=== PATIENT | female | born 1965 | race Caucasian/White ===

== ENCOUNTER 2017-11-30 09:27 | Observation (INO) ==
--- NOTE | 2017-11-30 09:54 | Emergency Department Note ---
Disposition Clinical Impression: Syncope Qualifiers: Syncope type: unspecified Qualified Code(s): R55 - Syncope and collapse Chest pain Qualifiers: Chest pain type: unspecified Qualified Code(s): R07.9 - Chest pain, unspecified Disposition: Admitted As Inpatient Condition: Good Referrals: Mame Lopez, BRIDGET [Primary Care Provider] - Time of Disposition: 11:20 Syncope HPI - General Chief Complaint: ED Neuro Symptoms/Deficit Stated Complaint: Syncopal,Neuro symptoms, CP Time Seen by Provider: 11/30/17 09:30 Source: patient Limitations: no limitations Nursing Notes Reviewed: Yes Vital Signs Reviewed: Yes - History of Present Illness HPI Narrative: 52 y/o female with hx of prior MA with stent placed in 2011 presents to the ED with complaints of syncope x2 and CP. Pt states that for the last few days she felt clammy and sweaty. 2 days ago she had a terrible headache and afterward was clammy, sweaty. Yesterday she was sitting on her couch and felt like she was going to pass out, she then stood up and walked across the room and passed out. Prior to passing out she felt like the room was going black starting from her feet going up her legs. She woke up and had some left sided chest pain and cold/numbness sensation across the left to right chest similar to the pain she experienced with her prior MA. She was also diaphoretic, slightly SOB, had some blurry vision. She had a second episode later that evening. She woke up this morning and had some central CP, non-radiating, 5/10 aching pain that is now gone. She had some left cheek numbness that has resolved, however her lips are still numb. She feels like she is going to pass out, which worsened with walking into the ED. She did take a nitro when she had CP yesterday, which relieved the pain. She has not taken any nitro or ASA today. She still feels hot , flushed, clammy, dizzy, has blurry vision. Denies current CP, sob, n/v/d, abd pain, weakness. Prior MA in 2011 with 1 stent. Last stress test was in April,. Last Echo was in August 2016: Normal with LVEF 60%. - Related Data Home Medications Medication Instructions Recorded Confirmed ALPRAZolam [Xanax 0.5 MG Tablet] 0.5 mg PO BID 11/30/17 11/30/17 Albuterol Sulfate [Proair Hfa] 2 puff IH Q6H PRN 11/30/17 11/30/17 Amitriptyline [Elavil] 25 - 50 mg PO QPM 11/30/17 11/30/17 Aspirin [Lo-Dose Aspirin EC] 81 mg PO DAILY 11/30/17 11/30/17 Atenolol [Tenormin] 12.5 mg PO DAILY 11/30/17 11/30/17 Budesonide/Formoterol 160/4.5 2 puff IH BIDR 11/30/17 11/30/17 [Symbicort 160/4.5] Cetirizine HCl [Zyrtec] 10 mg PO DAILY 11/30/17 11/30/17 Zolpidem [Ambien] 10 mg PO HS 11/30/17 11/30/17 Allergies Allergy/AdvReac Type Severity Reaction Status Date / Time meperidine [From Demerol] Allergy Nausea Verified 11/30/17 09:30 simvastatin [From Zocor] AdvReac Cramping Verified 11/30/17 09:30 of the Muscles All systems ED: reviewed and negative except as stated. Past Medical History - Past Medical History Attestation: Yes The following information was validated with the patient. 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 Absent: conjunctival injection, nystagmus - ENT ENT exam: normal exam, normal oropharynx, mucous membranes moist - Chest Chest inspection: Present: normal inspection, symmetric chest wall rise - Respiratory Respiratory exam: Absent: respiratory distress, wheezes, stridor, accessory muscle use, prolonged expiratory phase - Expanded Respiratory Exam Location: rales: Left, Lower - Cardiovascular Cardiovascular exam: Present: regular rate, normal rhythm, +S1, +S2. Absent: systolic murmur, diastolic murmur, rubs, gallop, JVD - Abdominal Exam Abdominal exam: Present: soft, Non-Tender, normal bowel sounds. Absent: tenderness, distention, guarding, rebound, rigidity - Extremities Exam Extremities exam: Present: normal inspection, normal capillary refill. Absent: tenderness, pedal edema, calf tenderness - Neurological Exam Neurological exam: Present: alert, oriented X3, CN II-XII intact, normal gait, reflexes normal. Absent: motor sensory deficit - Expanded Neurological Exam Speech: Present: fluid speech Cranial nerves: EOM function (II, III, IV, ): Normal, facial sensation (V): Normal, facial palsy (VII): Normal, gag reflex (IX): Normal, spinal accessory function (XI): Normal, tongue deviation (XII): Normal Cerebellar function: normal gait Motor strength - LUE: 5/5 Motor strength - RUE: 5/5 Motor strength - LLE: 5/5 Motor strength - RLE: 5/5 Sensory exam upper extremity: light touch: Normal Sensory exam lower extremity: light touch: Normal Coma Scale Eye Opening: Spontaneous Coma Scale Motor Response: Obeys Commands Coma Scale Verbal Response: Oriented Coma Scale Total: 15 - Psychiatric Psychiatric exam: Present: normal affect, normal mood - Skin Skin exam: Present: warm, dry, intact, normal color Course Course Narrative: Pt with PMH MA with stent x1 in 2011 presents with 2 episodes of syncope yesterday and CP. Neuro exam unremarkable. Will work up for Neuro vs cardiac issues with EKG, head CT, CXR, BMP, CBC, trop, mag, tsh and UA. Orthostatic vitals positive with decrease in SBP by 20 with elevation of HR by 10 going from sitting to standing. Pt currently chest pain free, with dizziness with ambulation. - Reevaluation(s) Reevaluation #1: EKG NSR with out ST Elevevations or depression. WBC elevated to 14 with left shift. BMP, mg WNL. TSH, UA pending. Head CT negative, CXR normal. Discussed results with pt and that we would like her admitted for observation, cardiology eval and likely stress test. Pt agreeable to admission. Will give ASA. Time: 10:58 - Consultations Consultation #1: Case discussed with Dr. Leal with the hospitalist service, patient accepted for admission. Time: 11:15 Vital Signs Temperature 97.7 F 11/30/17 09:30 Pulse Rate 111 11/30/17 09:30 Respiratory Rate 20 11/30/17 09:30 Blood Pressure 154/96 11/30/17 09:30 O2 Sat by Pulse Oximetry 97 11/30/17 09:30 Temperature 97.7 F 11/30/17 09:38 Pulse Rate 66 11/30/17 10:55 Respiratory Rate 16 11/30/17 12:49 Blood Pressure 116/71 11/30/17 12:49 O2 Sat by Pulse Oximetry 97 11/30/17 10:55 Oxygen Delivery Oxygen Delivery Room Air Syncope - MDM Narrative Medical decision making narrative: 52 y/o female with PMH of MA with stent x1 in 2011. Presents with 2 episodes of syncope and subsequent CP that was relieved with nitro. Pt had central CP this am that did not radiate. She had numbness of the left cheek yesterday that resolved, now only has numbness of lips. Dizzy with ambulation. EKG shows NSR without ST elevation/depression. CT head, cxr WNL. WBC elevated to 14 with left shift, trop negative, BMP unremarkable. - Differential Diagnosis Likely: syncope due to orthostatic hypotension, vasovagal syncope, dehydration/ metabolic disorder - Medical Records Medical records reviewed: Yes I reviewed the patient's medical records. - Lab Data Lab results reviewed: Yes I reviewed the patient's lab results. Result diagrams: 11/30/17 09:57 11/30/17 09:57 Lab Results 11/30/17 11/30/17 11/30/17 Range/Units 09:57 09:57 11:09 WBC 14.6 H (4.3-11.1) K/mcL RBC 4.51 (3.82-4.97) M/mcL Hgb 14.6 (11.5-15.4) g/dL Hct 44.4 (35.3-44.9) % MCV 98.4 (83.0-100.0) fL MCH 32.4 (28.0-33.3) pg MCHC 32.9 (31.6-35.5) g/dL RDW 12.6 (11.5-14.5) % Plt Count 283 (140-400) K/mcL MPV 9.7 (9.4-12.4) fL Immature Gran % 0.3 (0-4) % Seg Neutrophils % 74.8 % Lymphocytes % 19.3 % Monocytes % 4.8 % Eosinophils % 0.6 % Basophils % 0.2 % Neutrophils # 10.9 H (1.6-8.9) K/mcL Lymphocytes # 2.8 (0.6-4.6) K/mcL Monocytes # 0.7 (0.0-1.3) K/mcL Eosinophils # 0.1 (0.0-0.6) K/mcL Basophils # 0.0 (0.0-0.2) K/mcL Sodium 140 (136-145) mEq/L Potassium 3.5 (3.5-5.1) mEq/L Chloride 106 (98-107) mEq/L Carbon Dioxide 25 (23-29) mEq/L BUN 18 (6-20) mg/dL Creatinine 1.03 (0.60-1.20) mg/dL Est GFR ( Amer) > 60 (> 60) Est GFR (Non-Af Amer) 57 L (> 60) BUN/Creatinine Ratio 17 (6-26) Glucose 127 H (70-105) mg/dL Calculated Osmolality 293 (280-300) Calcium 10.0 (8.6-10.3) mg/dL Magnesium 2.3 (1.6-2.6) mg/dL Troponin I < 0.03 (< 0.04) ng/mL TSH 0.966 (0.340-5.600) mcIU/mL Urine Color Yellow (Yellow) Urine Clarity Clear (Clear) Urine pH 5.5 (5.0-8.0) pH Units Ur Specific [place] 1.019 (1.010-1.025) Urine Protein Negative (Neg-Trace) mg/dL Urine Glucose (UA) Normal (Normal) mg/dL Urine Ketones Negative (Negative) mg/dL Urine Blood Negative (Negative) Urine Nitrite Negative (Negative) Urine Bilirubin Negative (Negative) Urine Urobilinogen Normal (Normal) mg/dL Ur Leukocyte Esterase Trace H (Negative) Urine Microscopic RBC 0-3 (0-3) per hpf Urine Microscopic WBC 0-3 (0-3) per hpf Ur Squamous Epith Cells Many H (None-Few) per lpf Urine Bacteria None Seen (None-Few) per hpf Hyaline Casts None Seen (None-Few) per lpf Ur Culture Indicated? NO. A (NO) - Radiology Data Radiology results reviewed: Yes I reviewed the patient's radiology results. - EKG Data EKG attestation: Yes I reviewed and interpreted this EKG. EKG results narrative: NSR without ST elevation or depressions. VR 88, LA 140, QRS 82, QT 339. EKG shows normal: sinus rhythm Rate: normal Rhythm: NSR Pinson/QRS: normal When compared to previous EKG there are: no significant changes Interpretation: normal EKG
[2017-11-30 10:10] LABS: Basophils % 0.2 %; Eosinophils # 0.1 K/mcL (0.0-0.6); Eosinophils % 0.6 %; Hematocrit 44.4 % (35.3-44.9); Hemoglobin 14.6 g/dL (11.5-15.4); Immature Granulocytes % 0.3 % (0-4); Lymphocytes # 2.8 K/mcL (0.6-4.6); Lymphocytes % 19.3 %; Mean Corpuscular HGB Conc 32.9 g/dL (31.6-35.5); Mean Corpuscular Hemoglobin 32.4 pg (28.0-33.3); Mean Corpuscular Volume 98.4 fL (83.0-100.0); Mean Platelet Volume 9.7 fL (9.4-12.4); Monocytes # 0.7 K/mcL (0.0-1.3); Monocytes % 4.8 %; Neutrophils # 10.9 K/mcL (1.6-8.9); Platelet Count 283 K/mcL (140-400); Red Blood Count 4.51 M/mcL (3.82-4.97); Red Cell Distribution Width 12.6 % (11.5-14.5); Segmented Neutrophils % 74.8 %
[2017-11-30 10:38] LABS: Troponin I < 0.03 ng/mL (< 0.04)
[2017-11-30 10:40] LABS: BUN/Creatinine Ratio 17 (6-26); Blood Urea Nitrogen 18 mg/dL (6-20); Carbon Dioxide 25 mEq/L (23-29); Chloride 106 mEq/L (98-107); Glucose 127 mg/dL (70-105); Magnesium 2.3 mg/dL (1.6-2.6); Osmolality,Calculated 293 (280-300); Potassium 3.5 mEq/L (3.5-5.1); Sodium 140 mEq/L (136-145); eGFR For Non-African Americans 57 (> 60)
[2017-11-30 10:52] LABS: Thyroid Stimulating Hormone 0.966 mcIU/mL (0.340-5.600)
[2017-11-30] MEDS ORDERED: Aspirin 325 MG TABLET PO ONE (11:20)
--- NOTE | 2017-11-30 11:20 | Emergency Department Note ---
Disposition Clinical Impression: Syncope Qualifiers: Syncope type: unspecified Qualified Code(s): R55 - Syncope and collapse Disposition: Admitted As Inpatient Condition: Good Referrals: NONE,PCP [Non-Partnered Physician] - Forms: ED Satisfaction Letter General Adult HPI - General Chief complaint: ED Neuro Symptoms/Deficit Stated complaint: Syncopal,Neuro symptoms, CP Time Seen by Provider: 11/30/17 09:30 Source: patient Limitations: no limitations - History of Present Illness Pain Scale: 4 - Related Data Home Medications Medication Instructions Recorded Confirmed ALPRAZolam [Xanax 0.5 MG Tablet] 0.5 mg PO BID 11/30/17 11/30/17 Albuterol Sulfate [Proair Hfa] 2 puff IH Q6H PRN 11/30/17 11/30/17 Amitriptyline [Elavil] 25 - 50 mg PO QPM 11/30/17 11/30/17 Aspirin [Lo-Dose Aspirin EC] 81 mg PO DAILY 11/30/17 11/30/17 Atenolol [Tenormin] 12.5 mg PO DAILY 11/30/17 11/30/17 Budesonide/Formoterol 160/4.5 2 puff IH BIDR 11/30/17 11/30/17 [Symbicort 160/4.5] Cetirizine HCl [Zyrtec] 10 mg PO DAILY 11/30/17 11/30/17 Zolpidem [Ambien] 10 mg PO HS 11/30/17 11/30/17 Allergies Allergy/AdvReac Type Severity Reaction Status Date / Time meperidine [From Demerol] Allergy Nausea Verified 11/30/17 09:30 simvastatin [From Zocor] AdvReac Cramping Verified 11/30/17 09:30 of the Muscles Past Medical History - Past Medical History Medical history: Reports: coronary artery disease Surgical history: Reports: orthopedic, other (right femur fracture repair) Psychiatric history: Reports: 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 - Social History Smoking Status: Current every day smoker Smokeless Tobacco Status: No Alcohol use: Reports: none Drug use: Reports: none Physical Exam - General Limitations: no limitations General appearance: alert, in no apparent distress Course Vital Signs Temperature 97.7 F 11/30/17 09:30 Pulse Rate 111 11/30/17 09:30 Respiratory Rate 20 11/30/17 09:30 Blood Pressure 154/96 11/30/17 09:30 O2 Sat by Pulse Oximetry 97 11/30/17 09:30 Temperature 97.7 F 11/30/17 09:38 Pulse Rate 66 11/30/17 10:55 Respiratory Rate 16 11/30/17 10:55 Blood Pressure 123/104 11/30/17 10:55 O2 Sat by Pulse Oximetry 97 11/30/17 10:55 Oxygen Delivery Oxygen Delivery Room Air Medical Decision Making - Lab Data Result diagrams: 11/30/17 09:57 11/30/17 09:57 Lab Results 11/30/17 11/30/17 Range/Units 09:57 09:57 WBC 14.6 H (4.3-11.1) K/mcL RBC 4.51 (3.82-4.97) M/mcL Hgb 14.6 (11.5-15.4) g/dL Hct 44.4 (35.3-44.9) % MCV 98.4 (83.0-100.0) fL MCH 32.4 (28.0-33.3) pg MCHC 32.9 (31.6-35.5) g/dL RDW 12.6 (11.5-14.5) % Plt Count 283 (140-400) K/mcL MPV 9.7 (9.4-12.4) fL Immature Gran % 0.3 (0-4) % Seg Neutrophils % 74.8 % Lymphocytes % 19.3 % Monocytes % 4.8 % Eosinophils % 0.6 % Basophils % 0.2 % Neutrophils # 10.9 H (1.6-8.9) K/mcL Lymphocytes # 2.8 (0.6-4.6) K/mcL Monocytes # 0.7 (0.0-1.3) K/mcL Eosinophils # 0.1 (0.0-0.6) K/mcL Basophils # 0.0 (0.0-0.2) K/mcL Sodium 140 (136-145) mEq/L Potassium 3.5 (3.5-5.1) mEq/L Chloride 106 (98-107) mEq/L Carbon Dioxide 25 (23-29) mEq/L BUN 18 (6-20) mg/dL Creatinine 1.03 (0.60-1.20) mg/dL Est GFR ( Amer) > 60 (> 60) Est GFR (Non-Af Amer) 57 L (> 60) BUN/Creatinine Ratio 17 (6-26) Glucose 127 H (70-105) mg/dL Calculated Osmolality 293 (280-300) Calcium 10.0 (8.6-10.3) mg/dL Magnesium 2.3 (1.6-2.6) mg/dL Troponin I < 0.03 (< 0.04) ng/mL TSH 0.966 (0.340-5.600) mcIU/mL Attestation Statement - Attestation Attestation: I examined this patient and my medical decision-making was reviewed with the Resident Physician. I agree with the documented findings, disposition and treatment plan as described except to the extent set forth below. 52 year old female presents to the ED with complaints of syncope and has a history of MS and states that she has one stent placedment. Shes states that she has had numbness across the chest which is how her preivous cardiac event presented. PAtient deneis any other nueroogical defeits at this time. HEr chest pain has resolved. WE will admit to medicine and give her ASA for therapy.
[2017-11-30 11:23] LABS: Bilirubin,Urine Negative (Negative); Blood,Urine Negative (Negative); Clarity,Urine Clear (Clear); Color,Urine Yellow (Yellow); Glucose,Urine (UA) Normal (Normal); Ketones,Urine Negative (Negative); Leukocyte Esterase,Urine Trace (Negative); Nitrite,Urine Negative (Negative); PH,Urine 5.5 pH Units (5.0-8.0); Protein,Urine Negative (Neg-Trace); Specific Gravity,Urine 1.019 (1.010-1.025); Urobilinogen,Urine Normal (Normal)
[2017-11-30 11:25] LABS: Bacteria,Urine None Seen per hpf (None-Few); Hyaline Casts,Urine None Seen per lpf (None-Few); RBC,Urine 0-3 per hpf (0-3); Squamous Epithelial Cell,Urine Many per lpf (None-Few); WBC,Urine 0-3 per hpf (0-3)
[2017-11-30] MEDS ORDERED: Naloxone 0.4 MG/ML INJ IVP PRN (11:40)
--- NOTE | 2017-11-30 11:48 | Internal Med History&Physical ---
<Sybil Maria O - Last Filed: 11/30/17 20:50> Date of Encounter: 11/30/17 Internal Medicine - H&P: HPI History of present illness: Ms. Santos is a 52 year old female Past Med Surg Social Fam HX - Past Medical History Medical history: COPD, pulmonary embolus Internal Medicine - H&P: Meds ALPRAZolam [Xanax 0.5 MG Tablet] 0.5 mg PO BID 11/30/17 [History] Albuterol Sulfate [Proair Hfa] 2 puff IH Q6H PRN 11/30/17 [History] Amitriptyline [Elavil] 25 - 50 mg PO QPM 11/30/17 [History] Aspirin [Lo-Dose Aspirin EC] 81 mg PO DAILY 11/30/17 [History] Atenolol [Tenormin] 12.5 mg PO DAILY 11/30/17 [History] Budesonide/Formoterol 160/4.5 [Symbicort 160/4.5] 2 puff IH BIDR 11/30/17 [ History] Cetirizine HCl [Zyrtec] 10 mg PO DAILY 11/30/17 [History] Zolpidem [Ambien] 10 mg PO HS 11/30/17 [History] 3 Allergy/AdvReac Type Severity Reaction Status Date / Time meperidine [From Demerol] Allergy Nausea Verified 11/30/17 09:30 simvastatin [From Zocor] AdvReac Cramping Verified 11/30/17 09:30 of the Muscles All Systems PM: A 10-system review of systems was performed and is negative for pertinent findings except as documented above in the HPI. - Constitutional Vitals: Temp Pulse Resp BP Pulse Ox 98.6 F 73 18 148/92 99 11/30/17 19:02 11/30/17 19:02 11/30/17 20:01 11/30/17 19:02 11/30/17 20:01 Internal Med - H&P Results - Labs CBC & Chem 7: 11/30/17 09:57 11/30/17 09:57 Labs: Cardiac Enzymes 11/30/17 Range/Units 15:02 Troponin I < 0.03 (< 0.04) ng/mL - Impressions ITS Impressions Brain MRI 11/30/17 12:12 IMPRESSION: Minimal small-vessel ischemic changes No acute infarct, mass or hemorrhage. D/ / Gabe Regan / Gabe Regan Interpreting Provider: Gabe Regan Echocardiogram 11/30/17 12:14 Impressions: LVEF 60%. Normal left ventricular diastolic function. Normal right ventricular structure and function. No significant valvular dysfunction. No pulmonary hypertension. Left Ventricular Wall Motion: Rest Echo Findings All wall segments showed normal motion. Findings: Study Quality * Technically adequate exam. ECG Findings * Normal sinus rhythm. Left Ventricle * LVEF 60%. * Normal LV chamber size, wall thickness and function. * Normal left ventricular diastolic function. Right Ventricle * Normal right ventricular structure and function. Left Atrium * Normal left atrial size. Right Atrium * Normal right atrial size. Mitral Valve * Normal mitral valve structure. * No mitral stenosis. * Trace mitral regurgitation. Aortic Valve * No aortic regurgitation. * Trileaflet aortic valve. * No aortic stenosis. Tricuspid Valve * Trace tricuspid regurgitation. * Normal tricuspid valve structure. * Estimated RA pressure is 3 mmHg. * Estimated RVSP is 21 mmHg. * No pulmonary hypertension. Pulmonic Valve * Pulmonic valve is not well visualized. * No pulmonic stenosis. * No pulmonic regurgitation. Pulmonary Artery * Pulmonary artery not well visualized. Aorta * Normally sized aortic root. Pericardium * There is no pericardial effusion present. Interatrial Septum * No evidence of PFO by color Doppler. IVC * Normal IVC dimensions and inspiratory collapse. - Attending Attestation I performed a history and physical exam of the patient and discussed his management with the [employer]. I reviewed the [employer]'s note and agree with the documented findings and plan of care except for addendum added to assessment and plan. - Assessment and plan (1) Current smoker Current Visit: Yes Status: Acute Assessment and plan: Cessation strongly advised. Will give nicotine patch. (2) Syncope Current Visit: Yes Status: Acute Assessment and plan: Will check CTA chest to r/o PE. Pt reports prior hx of PE. She states she had a femur fx 2 years ago and was diagnosed with PE at that time. She states she was on Xarelto but that she is no longer on it. Will check CTA chest. Qualifiers: Syncope type: unspecified Qualified Code(s): R55 - Syncope and collapse (3) COPD (chronic obstructive pulmonary disease) Current Visit: Yes Status: Acute Assessment and plan: pt is not exacerbation. Will resume home nebs - Time Spent With Patient Total time spent is greater than 50% in coordination of care (as documented) at patient's floor/unit and/or counseling patient: 25 - 35 minutes <Katie Pratt Wenceslao - Last Filed: 11/30/17 22:46> Date of Encounter: 11/30/17 Time of Encounter: 11:47 Internal Medicine - H&P: HPI Chief complaint: Syncopal episodes Admitted From: Home Plans for Post Hospital Care: Home History of present illness: Ms. Santos is a 52 year old female with history of CA in 2011, HTN, CAD with stent placement, and hypercholesteremia. The patient reported a TRAVIS for the past 2 days. The patient indicated she was clammy and sweaty, light-headed and dizzy. She reported that today she was sitting on couch and felt like she might pass out. She got up and started walking and passed out on the floor. She woke up about 1 minute later. The patient indicated she had a cold sensation in her chest like when she had her first CA in 2011, and she also had left lip numbness. On exam noted her smile to be slightly uneven. No other focal deficits were noted. The patient strength was equal. In August, echo was done that showed ejection fraction 60%, trace pulmonic regurg, trace tricuspid regurg, and trace mitral regurg. Stress in 2016, apex and surrounding apical segments mild to moderate reduction in perfusion. We will get echo and MRI. Cardiology consult placed however will need to be called in morning. Family history of CA in father, who had an CA in his 30's. She reported that her grandpa was older but also had CA. I have discussed this case with Dr. Maria. Past Med Surg Social Fam HX - Past Medical History Medical history: coronary artery disease Psychiatric history: no psych history - Past Surgical History Surgical History: orthopedic, other (right femur fracture repair) Additional surgical history: CARDIAC STENT - Social History Smoking Status: Current every day smoker Packs per day: 1/2 Smokeless Tobacco Status: No Alcohol use: none Drug use: none - Family History Father Hx Family Cardiac Disorders: Yes (CA, CABG) All Systems PM: A 10-system review of systems was performed and is negative for pertinent findings except as documented above in the HPI. - Constitutional Constitutional: no chills, no fever(s), no night sweats - EENT Eyes: no change in vision, no discharge, no pain, no photophobia Ears: no ear discharge, no ear pain, no tinnitus Nose, mouth and throat: no dysphagia, no nasal discharge, no neck pain, no sore throat - Cardiovascular Cardiovascular ROS IM: chest pain (Cold sensation in chest), lightheadedness, syncope, no diaphoresis, no dyspnea, no palpitations - Respiratory Respiratory: dyspnea, no cough, no excessive phlegm production - Gastrointestinal Gastrointestinal: no abdominal pain, no diarrhea, no hematemesis, no hematochezia, no melena, no nausea, no vomiting - Genitourinary Genitourinary: no change in urinary stream, no dysuria, no flank pain, no hematuria - Musculoskeletal Musculoskeletal ROS IM: no numbness, no tingling - Integumentary Integumentary IM: no rash, no unusual bruising - Neurological Neurological ROS: no confusion, no convulsions, no focal weakness, no numbness, no tingling, no tremor(s) - Hematologic/Lymphatic Hematologic/Lymphatic: no easy bruising - Constitutional Vitals: Temp Pulse Resp BP Pulse Ox 97.7 F 66 16 123/104 97 11/30/17 09:38 11/30/17 10:55 11/30/17 10:55 11/30/17 10:55 11/30/17 10:55 General appearance: Present: A&O X 3, answers questions appropriately - Head Head exam: Present: atraumatic, normocephalic - Eye Eye exam: Present: PERRL, conjuntiva pink, sclera anicteric Pupils: Present: PERRL - Neck Neck exam general surgery: Present: supple, trachea midline. Absent: lymphadenopathy - Respiratory Respiratory exam: Present: decreased breath sounds. Absent: accessory muscle use, rales, rhonchi, wheezes - Cardiovascular Cardiovascular exam: Present: RRR, +S1, +S2. Absent: diastolic murmur, gallop, rubs, systolic murmur - GI/Abdominal GI/Abdominal exam: Present: normal bowel sounds, soft, no peritoneal signs. Absent: distended, tenderness - Extremities Exam Extremities exam: Present: warm, radial pulses palpable and symmetrical. Absent : calf tenderness, cyanotic, pedal edema - Neurological Exam Neurological exam: Present: CN II-XII intact, oriented X3, no focal deficits. Absent: pronater drift, facial droop, speech deficit - Skin Skin exam: Present: dry, intact Internal Med - H&P Results - Labs CBC & Chem 7: 11/30/17 09:57 11/30/17 09:57 - Assessment and plan (1) Syncope Current Visit: Yes Status: Acute Assessment and plan: Unsure of etiology of syncope, however patient has history of CA from [address] equivalent. CT head negative MRI scheduled Orthostatics Neuro checks every shift Cardiac monitoring Qualifiers: Syncope type: unspecified Qualified Code(s): R55 - Syncope and collapse (2) CAD (coronary artery disease) Current Visit: Yes Status: Acute Assessment and plan: History of CA in 2011 with stents. Stress in 2016 ejection fraction 63%, showed apex and surrounding apical septal segments with mild to moderate reduction in perfusion. Last echo 08/2007 complaints of dyspnea at that time. Ejection fraction 60% findings include trace pulmonic, tricuspid, mitral regurg regurg. Cardiology to be consulted for recommendations Echo scheduled Cardiac monitoring (3) HTN (hypertension) Current Visit: Yes Status: Acute Assessment and plan: Patient with history of hypertension. BP uncontrolled today 123/104. Likely related to discomfort Currently controlled Continue atenolol Consider adding hydralazine prn Qualifiers: Hypertension type: essential hypertension Qualified Code(s): I10 - Essential (primary) hypertension - Time Spent With Patient Total time spent is greater than 50% in coordination of care (as documented) at patient's floor/unit and/or counseling patient:
[2017-11-30] MEDS: Budesonide/Formoterol 160/4.5 MDI IH SCH (19:55)
[2017-11-30] MEDS ORDERED: Isovue-370 500 ML INFUS..BTL IV ONE (20:35)
[2017-11-30] MEDS: ALPRAZolam 0.5 MG TABLET PO SCH (21:07)
--- NOTE | 2017-11-30 22:02 | Electrocardiograph Report ---
[facility] Test Date: 2017-11-30 Pat Name: Katie Santos Department: 104 Room: 3B37 Gender: F Program Manager Transportation: VAISHALI : 1965 Requested By: Nasrin Hines Order Number: [id number] Reading MD: Jack Monahan Measurements Intervals [place] Rate: 88 P: 67 MN: 140 QRS: 49 QRSD: 82 T: 28 QT: 339 QTc: 384 Interpretive Statements SINUS RHYTHM Electronically Signed On 11-30-2017 22:00:36 EDT by Jack Monahan
[2017-12-01 01:54] LABS: Basophils % 0.3 %; Eosinophils # 0.2 K/mcL (0.0-0.6); Eosinophils % 1.9 %; Hematocrit 40.8 % (35.3-44.9); Hemoglobin 13.8 g/dL (11.5-15.4); Immature Granulocytes % 0.3 % (0-4); Lymphocytes # 3.2 K/mcL (0.6-4.6); Lymphocytes % 40.5 %; Mean Corpuscular HGB Conc 33.8 g/dL (31.6-35.5); Mean Corpuscular Hemoglobin 33.3 pg (28.0-33.3); Mean Corpuscular Volume 98.3 fL (83.0-100.0); Monocytes # 0.6 K/mcL (0.0-1.3); Neutrophils # 3.9 K/mcL (1.6-8.9); Platelet Count 246 K/mcL (140-400); Red Blood Count 4.15 M/mcL (3.82-4.97); Red Cell Distribution Width 12.4 % (11.5-14.5)
[2017-12-01 02:13] LABS: BUN/Creatinine Ratio 22 (6-26); Blood Urea Nitrogen 19 mg/dL (6-20); Calcium 9.3 mg/dL (8.6-10.3); Carbon Dioxide 23 mEq/L (23-29); Chloride 107 mEq/L (98-107); Chol/HDL Ratio 3.3 (0-4.9); Cholesterol 161 mg/dL (< 200); Glucose 106 mg/dL (70-105); HDL Cholesterol 49 mg/dL (40-59); LDL Cholesterol,Calculated 94 mg/dL (0-99); Osmolality,Calculated 287 (280-300); Sodium 137 mEq/L (136-145); Triglycerides 90 mg/dL (< 150); eGFR For Non-African Americans > 60 (> 60)
[2017-12-01] MEDS: ALPRAZolam 0.5 MG TABLET PO SCH (07:36)
[2017-12-01] MEDS: Budesonide/Formoterol 160/4.5 MDI IH SCH (07:52)
--- NOTE | 2017-12-01 08:47 | Cardiothoracic Consult Note ---
Date of Encounter: 12/01/17 Time of Encounter: 08:30 Assessment and Plan (1) Syncope Current Visit: Yes Status: Acute Vasovagal vs orthostatic syncope -pt passed out walking across the lawn yesterday after not eating or drinking all day -in ER, pt had orthostatics done ; sitting 144/77, standing 123/104 (drop in SBP >20) Plan: -CT head negative, MRI head negative -Orthostatics BP measurement -Cardiac monitoring -encourage pt to eat three heart healthy meals a day with a snack -Not cardiac in nature, doesn't need stress test at this time -if attending is agreeable, will sign off at this time Qualifiers: Syncope type: unspecified Qualified Code(s): R55 - Syncope and collapse (2) CAD (coronary artery disease) Current Visit: Yes Status: Acute Pt has a hx of CO in 2011 s/p stent placement -ECHO showed LVEF 60%, normal LV chamber size/wall thickness/fxn, normal LV diastolic fxn, normal RV, normal LA, normal RA. Plan: -cardiology to sign off if attending agreeable -cardiac monitoring -follow a heart healthy, low fat/low cholesterol diet -start pt on Niacin 500mg at night to avoid flushing -no need for stress test at this point Qualifiers: Coronary Disease-Associated Artery/Lesion type: [place] artery [place] vs. transplanted heart: [place] heart Associated angina: with angina and documented spasm Qualified Code(s): I25.111 - Atherosclerotic heart disease of [place] coronary artery with angina pectoris with documented spasm (3) HTN (hypertension) Current Visit: No Status: Chronic Hx of HTN -BP this morning is 130/79 -pt is on atenolol Plan: -well controlled -continue Atenolol -add hydralazine 10mg q6hr if SBP>160 Qualifiers: Hypertension type: essential hypertension Qualified Code(s): I10 - Essential (primary) hypertension (4) Current smoker Current Visit: No Status: Chronic Pt advised to quit smoking and follow a smoking cessation plan. - History of Present Illness Consult date: 11/30/17 Requesting physician: Katie Pratt Consult reason: Syncope Chief complaint: "passing out" History of present illness: Ms. Santos is a 52 year old female with a PMH of prior PE, CAD s/p stent, CO in 2012, anxiety and HTN. She presented to the ER yesterday after passing out in her yard. She states that she was walking across the lawn and started feeling cold/clammy and dizzy, she called out to her neighbors and then fell down. She was "out for a few minutes" and hit her head. She was slightly confused when she woke up but was easily reoriented. The patient states she has had extreme emotional stress at home over the last few weeks and, in the last few days, it has gotten extremely bad. She states that she has had a few episodes of sweaty/cold/clamminess but didn't pass out during heightened emotions over the last few days. This is the first time she has ever passed out but states that the cold and clammy feeling was similar to her heart attack in 2011 so she decided to come to the ER. The patient also states she hasn't been eating or drinking enough lately. She has been too stressed out to eat and has lost 10lbs in the last month or so. She states that she hadn't eaten or drank anything yesterday before passing out and thinks that passing out may have been related to not eating/drinking. The patient states she hasn't had any changes in medication recently, her alprazolam and amitriptyline have been at the same doses for quite some time. Fluids - none Electrolytes - all WNL Nutrition - cardiac diet DVT prophylaxis - SCD GI prophylaxis - not indicated Past Med Surg Social Fam HX - Past Medical History Medical history: coronary artery disease Psychiatric history: no psych history - Past Surgical History Surgical History: orthopedic, other (right femur fracture repair) Additional surgical history: CARDIAC STENT - Social History Smoking Status: Current every day smoker Packs per day: 1/2 Smokeless Tobacco Status: No Alcohol use: none Drug use: none - Family History Father Hx Family Cardiac Disorders: Yes (CO, CABG) Medications and Allergies ALPRAZolam [Xanax 0.5 MG Tablet] 0.5 mg PO BID 11/30/17 [History] Albuterol Sulfate [Proair Hfa] 2 puff IH Q6H PRN 11/30/17 [History] Amitriptyline [Elavil] 25 - 50 mg PO QPM 11/30/17 [History] Aspirin [Lo-Dose Aspirin EC] 81 mg PO DAILY 11/30/17 [History] Atenolol [Tenormin] 12.5 mg PO DAILY 11/30/17 [History] Budesonide/Formoterol 160/4.5 [Symbicort 160/4.5] 2 puff IH BIDR 11/30/17 [ History] Cetirizine HCl [Zyrtec] 10 mg PO DAILY 11/30/17 [History] Zolpidem [Ambien] 10 mg PO HS 11/30/17 [History] 3 Allergy/AdvReac Type Severity Reaction Status Date / Time meperidine [From Demerol] Allergy Nausea Verified 11/30/17 09:30 simvastatin [From Zocor] AdvReac Cramping Verified 11/30/17 09:30 of the Muscles All Systems Review: The remainder of the systems were reviewed and are negative - Constitutional Constitutional: anorexia, weight loss, no chills, no fatigue, no fever(s) - Cardiovascular Cardiovascular: diaphoresis, no chest pain at rest, no chest pain with exertion , no dyspnea at rest, no palpitations - Respiratory Respiratory: no cough, no wheezing - Gastrointestinal Gastrointestinal: no abdominal pain, no diarrhea, no nausea - Genitourinary Genitourinary: no dysuria, no urinary retention - Musculoskeletal Musculoskeletal: no muscle weakness - Integumentary Integumentary: no unusual bruising, no swelling - Neurological Neurological: no focal weakness, no numbness - Psychiatric Psychiatric: anxiety Physical Examination Vital Signs, Last 4 Hours Temp Pulse Resp BP Pulse Ox 12/01/17 07:52 14 98 12/01/17 06:54 98.2 F 60 20 130/79 97 General: No Apparent Distress HEENT: Atraumatic Neck: No JVD Cardiac: Reg Rate and Rhythm, Normal S1 and S2 Lungs: Normal Breath Sounds Neuro: Alert and responsive, No focal deficits noted Vascular: Normal capillary refill Abdomen: Soft, Non-tender Musculoskeletal: No Chest Wall Tenderness Extremities: No Edema, Normal Pulses Results 12/01/17 01:40 12/01/17 01:40 Lab Results, Last 24 hours 11/30/17 11/30/17 11/30/17 15:02 20:43 21:02 WBC Hgb Hct Plt Count D-Dimer < 215 Sodium Potassium Chloride Carbon Dioxide BUN Creatinine Glucose Calcium Troponin I < 0.03 < 0.03 12/01/17 12/01/17 12/01/17 01:40 01:40 01:40 WBC 7.9 Hgb 13.8 Hct 40.8 Plt Count 246 D-Dimer Sodium 137 Potassium 4.0 Chloride 107 Carbon Dioxide 23 BUN 19 Creatinine 0.87 Glucose 106 H Calcium 9.3 Troponin I < 0.03 Consult Discharge Plan - Plan Referrals: Mame Lopez, COST SPECIALIST [Primary Care Provider] -
[2017-12-01] MEDS ORDERED: Loratadine 10 MG TABLET PO SCH (09:00)
[2017-12-01] MEDS ORDERED: Aspirin Enteric Coated 81 MG Tablet PO SCH (09:00)
[2017-12-01] MEDS ORDERED: Niacin (24 HR) 500 MG TAB.ER.24H PO SCH (09:15)
--- NOTE | 2017-12-01 09:20 | Cardiology Consult Note ---
Date of Encounter: 12/01/17 Time of Encounter: 08:45 Assessment and Plan (1) Syncope Current Visit: Yes Status: Acute Vasovagal vs orthostatic syncope -pt passed out walking across the lawn yesterday after not eating or drinking all day -in ER, pt had orthostatics done ; sitting 144/77, standing 123/104 (drop in SBP >20) Plan: -CT head negative, MRI head negative -Orthostatics BP measurement -Cardiac monitoring -encourage pt to eat three heart healthy meals a day with a snack -Not cardiac in nature, doesn't need stress test at this time -attending is agreeable, will sign off at this time Qualifiers: Syncope type: unspecified Qualified Code(s): R55 - Syncope and collapse (2) CAD (coronary artery disease) Current Visit: Yes Status: Acute Pt has a hx of [place] in 2011 s/p stent placement -ECHO showed LVEF 60%, normal LV chamber size/wall thickness/fxn, normal LV diastolic fxn, normal RV, normal LA, normal RA. Plan: -cardiology to sign off if attending agreeable -cardiac monitoring -follow a heart healthy, low fat/low cholesterol diet -start pt on Niacin 500mg at night to avoid flushing -no need for stress test at this point Qualifiers: Coronary Disease-Associated Artery/Lesion type: [place] artery [place] vs. transplanted heart: [place] heart Associated angina: with angina and documented spasm Qualified Code(s): I25.111 - Atherosclerotic heart disease of [place] coronary artery with angina pectoris with documented spasm (3) HTN (hypertension) Current Visit: No Status: Chronic Hx of HTN -BP this morning is 130/79 -pt is on atenolol Plan: -well controlled -continue Atenolol -add hydralazine 10mg q6hr if SBP>160 Qualifiers: Hypertension type: essential hypertension Qualified Code(s): I10 - Essential (primary) hypertension (4) Current smoker Current Visit: No Status: Chronic Pt advised to quit smoking and follow a smoking cessation plan. Discussion w patient/family: The assessment and plan as outlined above was discussed with the patient and/or family members who expressed understanding and agreement. All questions were answered. Thank you for involving us in the care of your patient. Please call with any questions. History of Present Illness Consult date: 11/30/17 Requesting physician: Alexa Bermudez Consult reason: Syncope Chief complaint: "passed out" History of present illness: Ms. Santos is a 52 year old female with a PMH of prior PE, CAD s/p stent, OR in 2011, anxiety and HTN. She presented to the ER yesterday after passing out in her yard. She states that she was walking across the lawn and started feeling cold/clammy and dizzy, she called out to her neighbors and then fell down. She was "out for a few minutes" and hit her head. She was slightly confused when she woke up but was easily reoriented. The patient states she has had extreme emotional stress at home over the last few weeks and, in the last few days, it has gotten extremely bad. She states that she has had a few episodes of sweaty/cold/clamminess but didn't pass out during heightened emotions over the last few days. This is the first time she has ever passed out but states that the cold and clammy feeling was similar to her heart attack in 2011 so she decided to come to the ER. The patient also states she hasn't been eating or drinking enough lately. She has been too stressed out to eat and has lost 10lbs in the last month or so. She states that she hadn't eaten or drank anything yesterday before passing out and thinks that passing out may have been related to not eating/drinking. The patient states she hasn't had any changes in medication recently, her alprazolam and amitriptyline have been at the same doses for quite some time. Fluids - none Electrolytes - all WNL Nutrition - cardiac diet DVT prophylaxis - SCD GI prophylaxis - not indicated Past Med Surg Social Fam HX - Past Medical History Medical history: coronary artery disease Psychiatric history: no psych history - Past Surgical History Surgical History: orthopedic, other (right femur fracture repair) Additional surgical history: CARDIAC STENT - Social History Smoking Status: Current every day smoker Packs per day: 1/2 Smokeless Tobacco Status: No Alcohol use: none Drug use: none - Family History Father Hx Family Cardiac Disorders: Yes (OR, CABG) Medications and Allergies ALPRAZolam [Xanax 0.5 MG Tablet] 0.5 mg PO BID 11/30/17 [History] Albuterol Sulfate [Proair Hfa] 2 puff IH Q6H PRN 11/30/17 [History] Amitriptyline [Elavil] 25 - 50 mg PO QPM 11/30/17 [History] Aspirin [Lo-Dose Aspirin EC] 81 mg PO DAILY 11/30/17 [History] Atenolol [Tenormin] 12.5 mg PO DAILY 11/30/17 [History] Budesonide/Formoterol 160/4.5 [Symbicort 160/4.5] 2 puff IH BIDR 11/30/17 [ History] Cetirizine HCl [Zyrtec] 10 mg PO DAILY 11/30/17 [History] Zolpidem [Ambien] 10 mg PO HS 11/30/17 [History] 3 Allergy/AdvReac Type Severity Reaction Status Date / Time meperidine [From Demerol] Allergy Nausea Verified 11/30/17 09:30 simvastatin [From Zocor] AdvReac Cramping Verified 11/30/17 09:30 of the Muscles All Systems Review: The remainder of the systems were reviewed and are negative - Constitutional Constitutional: anorexia, weight loss, no fever(s), no frequent falls, no headache(s) - Cardiovascular Cardiovascular: no chest pain at rest, no chest pain with exertion, no dyspnea at rest, no palpitations - Respiratory Respiratory: no cough, no dyspnea - Gastrointestinal Gastrointestinal: no abdominal pain, no nausea - Genitourinary Genitourinary: no dysuria, no hematuria - Musculoskeletal Musculoskeletal: no muscle weakness - Integumentary Integumentary: no unusual bruising - Psychiatric Psychiatric: anxiety Physical Examination Vital Signs, Last 4 Hours Temp Pulse Resp BP Pulse Ox 12/01/17 07:52 14 98 12/01/17 06:54 98.2 F 60 20 130/79 97 General: Conversant HEENT: Atraumatic Neck: No JVD Cardiac: Reg Rate and Rhythm, Normal S1 and S2 Lungs: Normal Breath Sounds Neuro: Alert and responsive Abdomen: Soft Skin: No rashes noted on visualized skin Musculoskeletal: No Chest Wall Tenderness Extremities: No Edema Results 12/01/17 01:40 12/01/17 01:40 Lab Results 11/30/17 11/30/17 11/30/17 15:02 20:43 21:02 WBC Hgb Hct Plt Count D-Dimer < 215 Sodium Potassium Chloride Carbon Dioxide BUN Creatinine Glucose Calcium Troponin I < 0.03 < 0.03 12/01/17 12/01/17 12/01/17 01:40 01:40 01:40 WBC 7.9 Hgb 13.8 Hct 40.8 Plt Count 246 D-Dimer Sodium 137 Potassium 4.0 Chloride 107 Carbon Dioxide 23 BUN 19 Creatinine 0.87 Glucose 106 H Calcium 9.3 Troponin I < 0.03 Consult Discharge Plan - Plan Referrals: Mame Lopez, HORSESHOER [Primary Care Provider] -
[2017-12-01 11:11] VITALS: BP 106/63
--- NOTE | 2017-12-01 13:30 | Discharge Summary ---
Date of Encounter: 12/01/17 Time of Encounter: 10:30 - Discharge Diagnosis (1) Syncope Priority: Primary Status: Acute Assessment and Plan: Pt states that she is feeling significantly better. Reports some intermittent dizziness, but overall states that she has returned to her baseline. Pt admits to poor by mouth intake T before incident, alcohol intake night before incident, poor oral hydration prior to incident. Patient reports that she was camping in the heat was not hydrating well. Patient reports after her syncopal episode she has cool sensation over the anterior chest, reports feeling heat on the back of her neck. Also consciousness approximately 1 minute , she states that she did hit her head when she fell. Troponins were negative, there is no significant electrolyte disturbance, urine was negative. Chest x-ray is negative for any acute process. Head CT is negative for any intracranial abnormality. Brain MRI is negative for acute infarct, mass, or hemorrhage. There are minimal small vessel ischemic changes noted on brain MRI. Echocardiogram shows LVEF of 60% with normal right and left ventricular structure and function, no significant valvular dysfunction. Chest CTA is negative for pulmonary embolism or acute pulmonary abnormality. Carotid Dopplers showed nonstenotic plaque bilaterally. Orthostatic vitals done on admission, positive for orthostatic hypotension. She was evaluated by cardiology, this is not cardiac in nature, likely secondary to poor oral intake, dehydration, alcohol intake. Encourage patient to eat 3 heart healthy meals a day with metastatic, follow-up with primary care. Qualifiers: Syncope type: unspecified Qualified Code(s): R55 - Syncope and collapse (2) CAD (coronary artery disease) Priority: Secondary Status: Chronic Assessment and Plan: Patient denies chest pain. History of [place] in 2012 with stent placement. Results as above. Start heart healthy, low-fat/low-cholesterol diet as well as niacin 500 mg by mouth daily. Qualifiers: Coronary Disease-Associated Artery/Lesion type: [place] artery [place] vs. transplanted heart: [place] heart Associated angina: with angina and documented spasm Qualified Code(s): I25.111 - Atherosclerotic heart disease of [place] coronary artery with angina pectoris with documented spasm (3) HTN (hypertension) Priority: Secondary Status: Chronic Assessment and Plan: Chronic. Well controlled. Continue current medications. Qualifiers: Hypertension type: essential hypertension Qualified Code(s): I10 - Essential (primary) hypertension (4) Current smoker Priority: Secondary Status: Chronic Assessment and Plan: Smoking cessation discussed again today. Patient states that she will be able to quit on her own. Declines nicotine replacement therapy (5) COPD (chronic obstructive pulmonary disease) Priority: Secondary Status: Chronic Assessment and Plan: No acute exacerbation. Continue home inhalers. Continue to encourage smoking cessation. Qualifiers: COPD type: unspecified COPD Qualified Code(s): J44.9 - Chronic obstructive pulmonary disease, unspecified Hospital course: Ms. Santos is a 52 year old female with past medical history of coronary artery disease, hypertension, smoking, COPD. See assessment and plan for hospital course. Discharge discussed with: patient - Time Spent with Patient Total time spent providing and/or coordinating discharge services: Less than 30 minutes - Discharge Medications Prescriptions: Niacin (24 HR) [Niaspan] 500 mg PO HS #30 tab.er.24h Home Medications: ALPRAZolam [Xanax 0.5 MG Tablet] 0.5 mg PO BID 11/30/17 [History] Albuterol Sulfate [Proair Hfa] 2 puff IH Q6H PRN 11/30/17 [History] Amitriptyline [Elavil] 25 - 50 mg PO QPM 11/30/17 [History] Aspirin [Lo-Dose Aspirin EC] 81 mg PO DAILY 11/30/17 [History] Atenolol [Tenormin] 12.5 mg PO DAILY 11/30/17 [History] Budesonide/Formoterol 160/4.5 [Symbicort 160/4.5] 2 puff IH BIDR 11/30/17 [ History] Cetirizine HCl [Zyrtec] 10 mg PO DAILY 11/30/17 [History] Zolpidem [Ambien] 10 mg PO HS 11/30/17 [History] Niacin (24 HR) [Niaspan] 500 mg PO HS #30 tab.er.24h 12/01/17 [Rx] Allergies/Adverse Reactions: 3 Allergy/AdvReac Type Severity Reaction Status Date / Time meperidine [From Demerol] Allergy Nausea Verified 11/30/17 09:30 simvastatin [From Zocor] AdvReac Cramping Verified 11/30/17 09:30 of the Muscles Date of admission: 11/30/17 11:30 Primary care physician: Mame Lpoez CNP Discharging clinician: Mame Raya Anticipated date of discharge: 12/01/17 - Constitutional Vitals: Temp Pulse Resp BP Pulse Ox 98.6 F 63 14 106/63 96 12/01/17 11:02 12/01/17 11:02 12/01/17 11:02 12/01/17 11:02 12/01/17 11:02 General appearance: Present: A&O X 3, answers questions appropriately - Patient Status Disposition: Home, Self-Care Condition: Good - Discharge Instructions Follow Up With: Mame Lopez, HEREDITARY CANCER PROGRAM COORDINATOR [Primary Care Provider] - Additional Instructions: Your new prescription for niacin your pharmacy. Follow-up with primary care as scheduled. Return to the emergency department as needed for any other problems or concerns , or if your symptoms return or worsen. Be sure that you are drinking plenty of fluids and taking 3 heart healthy meals a day plus a snack. Return to your normal activities as tolerated. Resume your normal home medications. Stop smoking. - Diet and Activity Activity: resume usual activities as tolerated Diet: low fat, low cholesterol - VTE Documentation of Mechanical Device: Venous foot pump, device
== END 2017-12-01 14:22 | disposition home or self-care (01) ==
LOC: 3BNU 09:27 → EMEROO 09:27 → 3BNU 13:23
PROVIDERS: ADMIT Internal Medicine; ATTEND Internal Medicine

== ENCOUNTER 2019-02-22 07:28 | Inpatient (IN) ==
[2019-02-22] MEDS ORDERED: Heparin 1,000 UNITS/500 mL 500 ML ONE (07:50)
[2019-02-22] MEDS ORDERED: Nitroglycerin 1,000 MCG/10 ML VIAL IV ONE (07:51)
[2019-02-22] MEDS ORDERED: ISOVUE-370 200 ML INFUS..BTL ONE ×2 (07:51→08:01)
[2019-02-22] MEDS ORDERED: *HR* Heparin 10,000 UNIT/10 ML VIAL ONE (07:51)
[2019-02-22] MEDS ORDERED: 0.9 % Sodium Chloride 1,000 ML ONE (08:00)
[2019-02-22] MEDS: 0.9 % Sodium Chloride 1,000 ML IVC SCH (08:33)
[2019-02-22] MEDS ORDERED: *HR* FentaNYL (PF) 100 MCG/2 ML VIAL ONE (08:59)
[2019-02-22] MEDS ORDERED: *HR* Midazolam HCl 2 MG/2 ML VIAL ONE (08:59)
[2019-02-22] MEDS ORDERED: Nitroglycerin 0.4 MG TAB.SUBL SL PRN (11:53)
[2019-02-22] MEDS ORDERED: ALPRAZolam 0.5 MG TABLET PO PRN (13:06)
[2019-02-22 14:29] LABS: Basophils % 0.3 %; Eosinophils # 0.2 K/mcL (0.0-0.6); Eosinophils % 1.6 %; Hematocrit 37.2 % (35.3-44.9); Immature Granulocytes % 0.3 % (0-4); Lymphocytes # 2.6 K/mcL (0.6-4.6); Lymphocytes % 25.8 %; Mean Corpuscular HGB Conc 32.5 g/dL (31.6-35.5); Mean Corpuscular Hemoglobin 32.8 pg (28.0-33.3); Mean Corpuscular Volume 100.8 fL (83.0-100.0); Mean Platelet Volume 10.5 fL (9.4-12.4); Monocytes # 0.7 K/mcL (0.0-1.3); Monocytes % 7.5 %; Neutrophils # 6.4 K/mcL (1.6-8.9); Platelet Count 258 K/mcL (140-400); Red Blood Count 3.69 M/mcL (3.82-4.97); Segmented Neutrophils % 64.5 %; White Blood Count 9.9 K/mcL (4.3-11.1)
[2019-02-22 14:34] LABS: Hemoglobin 12.1 g/dL (11.5-15.4); Prothrombin Time 11.6 Seconds (9.4-12.1)
[2019-02-22 14:46] LABS: Calcium 8.8 mg/dL (8.6-10.3); Potassium 3.6 mEq/L (3.5-5.1)
[2019-02-22 15:07] LABS: Estimated Average Glucose 128 mg/dl
[2019-02-22] MEDS: Nicotine 21 MG PATCH.TD24 TD SCH (15:12)
[2019-02-22] MEDS ORDERED: ALPRAZolam 0.5 MG TABLET PO SCH (21:00)
[2019-02-23] MEDS: 0.9 % Sodium Chloride 1,000 ML IVC SCH ×2 (05:16→23:52)
[2019-02-23] MEDS: Loratadine 10 MG TABLET PO SCH (07:56)
[2019-02-23] MEDS: Aspirin Enteric Coated 81 MG Tablet PO SCH (07:56)
[2019-02-23] MEDS: Nicotine 21 MG PATCH.TD24 TD SCH (07:56)
[2019-02-23] MEDS: Isosorbide MONOnitrate (24 HR) 30 MG TAB.ER.24H PO SCH (07:56)
[2019-02-23] MEDS: Metoprolol XL (24 HR) Succ 25 MG TAB.ER.24H PO SCH (07:56)
[2019-02-23] MEDS ORDERED: 0.9 % Sodium Chloride 250 ML IVC ONE (10:41)
[2019-02-23] MEDS ORDERED: Acetaminophen 325 MG TABLET PO PRN (16:21)
[2019-02-23] MEDS: Chlorhexidine Rinse 15 ML MOUTHWASH MM SCH (23:50)
[2019-02-24] MEDS ORDERED: Norepinephrine 4 MG in 0.9 % Sodium Chloride 250 ML IVC PRN (06:00)
[2019-02-24] MEDS ORDERED: Heparin 15,000 UNIT in 0.9 % Sodium Chloride 500 ML IV ONE (06:00)
[2019-02-24] MEDS ORDERED: Dextrose 50 % in Water (Vial) 30 ML, Sodium Bicarbonate 20 MEQ, Lidocaine 1% 5 ML, Insu... TH ONE ×3 (06:00)
[2019-02-24] MEDS ORDERED: Dextrose 50 % in Water (Vial) 30 ML, Sodium Bicarbonate 20 MEQ, Potassium Chloride 15 M... TH ONE (06:00)
[2019-02-24] MEDS ORDERED: Insulin Human Regular 100 UNIT in 0.9 % Sodium Chloride 100 ML IV PRN (06:00)
[2019-02-24] MEDS ORDERED: NiCARdipine 2.5 MG/10 ML Syringe IVPB ONE (06:27)
[2019-02-24] MEDS ORDERED: Nitroglycerin 25 MG/250 ML INFUS..BTL IVC ONE (06:27)
[2019-02-24] MEDS ORDERED: *HR* Midazolam HCl 5 MG/5 ML VIAL IVP ONE (06:28)
[2019-02-24] MEDS ORDERED: *HR* PHENYLEPHRINE 1,000 MCG/10 ML SYRINGE IVP ONE ×2 (06:29→10:18)
[2019-02-24] MEDS ORDERED: *HR* FentaNYL (PF) 250 MCG/5 ML VIAL ONE (06:29)
[2019-02-24] MEDS ORDERED: *HR* Rocuronium Bromide 50 MG/5 ML VIAL ONE (06:29)
[2019-02-24] MEDS ORDERED: *HR* Etomidate 20 MG/10 ML AMPUL IVP ONE (06:29)
[2019-02-24] MEDS ORDERED: Famotidine 20 MG/2 ML VIAL ONE (06:29)
[2019-02-24] MEDS ORDERED: Calcium Gluconate 1,000 MG/10 ML VIAL ONE (06:30)
[2019-02-24] MEDS ORDERED: Protamine Sulfate 250 MG/25 ML VIAL IVP ONE (06:30)
[2019-02-24] MEDS ORDERED: Tranexamic Acid 1,000 MG/10 ML VIAL ONE ×2 (06:30→10:10)
[2019-02-24] MEDS ORDERED: CeFAZolin Syr 2,000MG/20 ML 2,000 MG/20 ML SYRINGE IVPB ONE (07:00)
[2019-02-24 08:07] LABS: ABG Base Excess 0 mEq/L (-2 to 3); ABG Chloride 109 mEq/L (98-107); ABG Glucose 102 mg/dL (60-95); ABG HCO3 27 mEq/L (21-27); ABG Ionized Calcium 1.26 mmol/L (1.15-1.35); ABG Oxygen Saturation 100 % (95-98); ABG PCO2 50 mmHg (35-45); ABG PH 7.33 pH Units (7.32-7.45); ABG PO2 237 mmHg (85-104); ABG TCO2 28 mEq/L (20-26)
[2019-02-24] MEDS: Aspirin Enteric Coated 81 MG Tablet PO SCH (08:28)
[2019-02-24] MEDS: Chlorhexidine Rinse 15 ML MOUTHWASH MM SCH (08:28)
[2019-02-24] MEDS: Loratadine 10 MG TABLET PO SCH (08:28)
[2019-02-24] MEDS: Metoprolol XL (24 HR) Succ 25 MG TAB.ER.24H PO SCH (08:29)
[2019-02-24] MEDS: Nicotine 21 MG PATCH.TD24 TD SCH ×2 (08:29→11:30)
[2019-02-24] MEDS: Isosorbide MONOnitrate (24 HR) 30 MG TAB.ER.24H PO SCH (08:29)
[2019-02-24 09:23] LABS: ABG Base Excess -1 mEq/L (-2 to 3); ABG Chloride 112 mEq/L (98-107); ABG Glucose 123 mg/dL (60-95); ABG HCO3 24 mEq/L (21-27); ABG Ionized Calcium 1.14 mmol/L (1.15-1.35); ABG Oxygen Saturation 100 % (95-98); ABG PCO2 41 mmHg (35-45); ABG PH 7.38 pH Units (7.32-7.45); ABG PO2 238 mmHg (85-104); ABG TCO2 25 mEq/L (20-26)
[2019-02-24 09:41] LABS: ABG Base Excess -2 mEq/L (-2 to 3); ABG Chloride 104 mEq/L (98-107); ABG Glucose 185 mg/dL (60-95); ABG HCO3 22 mEq/L (21-27); ABG Ionized Calcium 0.86 mmol/L (1.15-1.35); ABG PCO2 31 mmHg (35-45); ABG PH 7.45 pH Units (7.32-7.45); ABG PO2 > 630 mmHg (85-104); ABG TCO2 23 mEq/L (20-26)
[2019-02-24 10:07] LABS: ABG Base Excess 0 mEq/L (-2 to 3); ABG Chloride 105 mEq/L (98-107); ABG Glucose 132 mg/dL (60-95); ABG HCO3 24 mEq/L (21-27); ABG Ionized Calcium 1.02 mmol/L (1.15-1.35); ABG PCO2 36 mmHg (35-45); ABG PH 7.43 pH Units (7.32-7.45); ABG PO2 > 630 mmHg (85-104); ABG TCO2 25 mEq/L (20-26)
[2019-02-24 10:32] LABS: ABG Base Excess -6 mEq/L (-2 to 3); ABG Chloride 110 mEq/L (98-107); ABG Glucose 100 mg/dL (60-95); ABG HCO3 19 mEq/L (21-27); ABG Ionized Calcium 1.57 mmol/L (1.15-1.35); ABG Oxygen Saturation 100 % (95-98); ABG PCO2 38 mmHg (35-45); ABG PH 7.32 pH Units (7.32-7.45); ABG PO2 257 mmHg (85-104); ABG TCO2 21 mEq/L (20-26)
[2019-02-24] MEDS ORDERED: Potassium Chloride 40 MEQ/200 ML BAG IVPB PRN (10:42)
[2019-02-24] MEDS ORDERED: *HR* Dextrose 50 % in Water (Syg) 50 ML SYRINGE IVP PRN (10:42)
[2019-02-24] MEDS ORDERED: Insulin Regular, Human 100 UNIT/ML IV PRN (10:42)
[2019-02-24] MEDS ORDERED: Acetaminophen 650 MG RECTAL SUPP RC PRN (10:45)
[2019-02-24] MEDS ORDERED: Ondansetron 4 MG/2 ML VIAL IVP PRN (10:45)
[2019-02-24] MEDS ORDERED: Calcium Gluconate 1gm/50mL 1 GM/50 ML BAG IVPB PRN (10:46)
[2019-02-24] MEDS ORDERED: Norepinephrine 4 MG in 0.9 % Sodium Chloride 250 ML IVC SCH (11:00)
[2019-02-24] MEDS ORDERED: *HR* Phenylephrine 10 MG/ML VIAL IVC ONE (11:03)
[2019-02-24] MEDS ORDERED: Albumin Human 25% 25 GM/100 ML IV.SOLN IV ONE (11:03)
[2019-02-24] MEDS ORDERED: *HR* Magnesium Sulfate 2 GM/50 ML PIGGYBACK IVPB ONE (11:03)
[2019-02-24] MEDS ORDERED: Tranexamic Acid 1,000 MG/10 ML VIAL IVPB ONE (11:03)
[2019-02-24] MEDS ORDERED: *HR* Heparin 10,000 UNIT/10 ML VIAL IV ONE (11:03)
[2019-02-24] MEDS ORDERED: Lidocaine 2% Syringe 100 MG/5 ML IV ONE (11:03)
[2019-02-24] MEDS ORDERED: Mannitol 25% vial 12.5 GM/50 ML VIAL IVP ONE (11:03)
[2019-02-24] MEDS ORDERED: D5% in Water 250 ML IV BAG IV ONE (11:03)
[2019-02-24 11:25] LABS: ABG Base Excess 1 mEq/L (-2 to 3); ABG HCO3 25 mEq/L (21-27); ABG Oxygen Saturation 100 % (95-98); ABG PCO2 37 mmHg (35-45); ABG PH 7.43 pH Units (7.32-7.45); ABG PO2 607 mmHg (85-104); ABG TCO2 26 mEq/L (20-26); Blood Gas VT 600 cc
[2019-02-24] MEDS: 0.9 % Sodium Chloride w KCl 20 MEQ/1,000 ML MLS IVC SCH (11:31)
[2019-02-24] MEDS: Insulin Human Regular 100 UNIT in 0.9 % Sodium Chloride 100 ML IVC SCH ×2 (11:32→12:30)
[2019-02-24] MEDS: niCARdipine 20 MG/200 ML MLS IVC SCH ×5 (11:32→23:02)
[2019-02-24] MEDS: Ketorolac 15 MG/ML VIAL IVP SCH ×3 (11:33→23:01)
[2019-02-24] MEDS: Metoclopramide 10 MG/2 ML VIAL IVP SCH ×3 (11:33→23:01)
[2019-02-24] MEDS: Nitroglycerin 25 MG/250 ML INFUS..BTL IVC SCH ×2 (11:33→11:37)
[2019-02-24 11:35] LABS: Basophils % 0.2 %; Eosinophils # 0.3 K/mcL (0.0-0.6); Eosinophils % 1.9 %; Hematocrit 25.6 % (35.3-44.9); Immature Granulocytes % 0.4 % (0-4); Lymphocytes # 2.1 K/mcL (0.6-4.6); Mean Corpuscular Hemoglobin 32.8 pg (28.0-33.3); Mean Corpuscular Volume 96.6 fL (83.0-100.0); Mean Platelet Volume 9.8 fL (9.4-12.4); Monocytes # 0.7 K/mcL (0.0-1.3); Monocytes % 5.2 %; Neutrophils # 10.7 K/mcL (1.6-8.9); Platelet Count 132 K/mcL (140-400); Red Blood Count 2.65 M/mcL (3.82-4.97); Red Cell Distribution Width 11.9 % (11.5-14.5); Segmented Neutrophils % 77.3 %; White Blood Count 13.9 K/mcL (4.3-11.1)
[2019-02-24 11:36] LABS: Hemoglobin 8.7 g/dL (11.5-15.4)
[2019-02-24 11:43] LABS: INR 1.6; Prothrombin Time 17.7 Seconds (9.4-12.1)
[2019-02-24 11:45] LABS: Activated Partial Thrombo Time 32.2 Seconds (26.0-36.0)
[2019-02-24 11:52] LABS: BUN/Creatinine Ratio 13 (6-26); Blood Urea Nitrogen 11 mg/dL (6-20); Calcium 8.7 mg/dL (8.6-10.3); Carbon Dioxide 23 mEq/L (23-29); Chloride 110 mEq/L (98-107); Glucose 93 mg/dL (70-105); Magnesium 2.6 mg/dL (1.6-2.6); Osmolality,Calculated 291 (280-300); Potassium 3.6 mEq/L (3.5-5.1); Sodium 141 mEq/L (136-145); eGFR For African Americans > 60 (> 60); eGFR For Non-African Americans > 60 (> 60)
[2019-02-24] MEDS: *HR* FentaNYL (PF) 100 MCG/2 ML VIAL IVP PRN ×2 (11:52→19:11)
[2019-02-24] MEDS: *HR* OxyCODONE/APAP 5/325 TABLET PO PRN ×2 (13:10→17:14)
[2019-02-24 16:54] LABS: Red Cell Distribution Width 11.9 % (11.5-14.5)
[2019-02-24 16:56] LABS: Hematocrit 32.7 % (35.3-44.9); Hemoglobin 10.6 g/dL (11.5-15.4); Mean Corpuscular HGB Conc 32.4 g/dL (31.6-35.5); Mean Corpuscular Hemoglobin 32.4 pg (28.0-33.3); Platelet Count 194 K/mcL (140-400); Red Blood Count 3.27 M/mcL (3.82-4.97); White Blood Count 25.2 K/mcL (4.3-11.1)
[2019-02-24] MEDS ORDERED: Furosemide 20 MG/2 ML VIAL IVP SCH (17:00)
[2019-02-24 18:28] LABS: ABG Base Excess 0 mEq/L (-2 to 3); ABG HCO3 26 mEq/L (21-27); ABG Oxygen Saturation 98 % (95-98); ABG PCO2 47 mmHg (35-45); ABG PH 7.36 pH Units (7.32-7.45); ABG PO2 112 mmHg (85-104); ABG TCO2 28 mEq/L (20-26); Blood Gas VT 600 cc
[2019-02-24 18:41] LABS: ABG Base Excess 2 mEq/L (-2 to 3); ABG HCO3 27 mEq/L (21-27); ABG Oxygen Saturation 98 % (95-98); ABG PCO2 45 mmHg (35-45); ABG PH 7.39 pH Units (7.32-7.45); ABG PO2 108 mmHg (85-104); ABG TCO2 28 mEq/L (20-26)
[2019-02-24] MEDS ORDERED: Chlorhexidine Rinse 15 ML MOUTHWASH MM SCH (21:00)
[2019-02-25 03:25] LABS: INR 1.2; Prothrombin Time 13.5 Seconds (9.4-12.1)
[2019-02-25 03:27] LABS: Basophils % 0.2 %; Eosinophils % 0.3 %; Hematocrit 25.3 % (35.3-44.9); Immature Granulocytes % 0.2 % (0-4); Immature Platelets 5.5 % (1.1-6.1); Lymphocytes # 1.4 K/mcL (0.6-4.6); Lymphocytes % 15.8 %; Mean Corpuscular Hemoglobin 32.9 pg (28.0-33.3); Mean Corpuscular Volume 102.8 fL (83.0-100.0); Mean Platelet Volume 10.3 fL (9.4-12.4); Monocytes % 10.6 %; Neutrophils # 6.6 K/mcL (1.6-8.9); Platelet Count 128 K/mcL (140-400); Red Blood Count 2.46 M/mcL (3.82-4.97); Red Cell Distribution Width 12.1 % (11.5-14.5); Segmented Neutrophils % 72.9 %; White Blood Count 9.1 K/mcL (4.3-11.1)
[2019-02-25 03:28] LABS: Activated Partial Thrombo Time 29.2 Seconds (26.0-36.0); Hemoglobin 8.1 g/dL (11.5-15.4)
[2019-02-25 03:33] LABS: BUN/Creatinine Ratio 13 (6-26); Blood Urea Nitrogen 13 mg/dL (6-20); Calcium 8.6 mg/dL (8.6-10.3); Carbon Dioxide 25 mEq/L (23-29); Chloride 110 mEq/L (98-107); Glucose 110 mg/dL (70-105); Magnesium 2.1 mg/dL (1.6-2.6); Osmolality,Calculated 293 (280-300); Potassium 4.2 mEq/L (3.5-5.1); Sodium 141 mEq/L (136-145); eGFR For African Americans > 60 (> 60); eGFR For Non-African Americans 60 (> 60)
[2019-02-25] MEDS: Metoclopramide 10 MG/2 ML VIAL IVP SCH ×3 (05:03→18:30)
[2019-02-25] MEDS: Ketorolac 15 MG/ML VIAL IVP SCH ×3 (05:04→18:30)
[2019-02-25] MEDS ORDERED: Ondansetron 4 MG/2 ML VIAL IVP PRN (07:28)
[2019-02-25] MEDS ORDERED: Insulin Human Regular 100 UNIT in 0.9 % Sodium Chloride 100 ML IV PRN (07:28)
[2019-02-25] MEDS ORDERED: *HR* FentaNYL (PF) 100 MCG/2 ML VIAL IVP PRN (07:28)
[2019-02-25] MEDS ORDERED: Insulin Regular, Human 100 UNIT/ML IV PRN (07:28)
[2019-02-25] MEDS ORDERED: Nitroglycerin 0.4 MG TAB.SUBL SL PRN (07:28)
[2019-02-25] MEDS ORDERED: *HR* Dextrose 50 % in Water (Syg) 50 ML SYRINGE IVP PRN (07:28)
[2019-02-25] MEDS ORDERED: Acetaminophen 325 MG TABLET PO PRN (07:28)
[2019-02-25] MEDS ORDERED: Insulin Human Regular 100 UNIT in 0.9 % Sodium Chloride 100 ML IVC SCH (07:28)
[2019-02-25] MEDS ORDERED: D5% in Water 1,000 ML IVC PRN (07:28)
[2019-02-25] MEDS ORDERED: Dextrose Gel 15 GM/37.5 ML TUBE PO PRN ×2 (07:28)
[2019-02-25] MEDS: 0.9 % Sodium Chloride w KCl 20 MEQ/1,000 ML MLS IVC SCH (08:13)
[2019-02-25] MEDS: Pantoprazole 40 MG VIAL IVP SCH (08:36)
[2019-02-25] MEDS: Chlorhexidine Rinse 15 ML MOUTHWASH MM SCH ×2 (08:36→20:52)
[2019-02-25] MEDS: Nicotine 21 MG PATCH.TD24 TD SCH (08:36)
[2019-02-25] MEDS: Loratadine 10 MG TABLET PO SCH (08:37)
[2019-02-25] MEDS: Aspirin Enteric Coated 81 MG Tablet PO SCH (08:37)
[2019-02-25] MEDS: *HR* Heparin 5,000 UNIT/ML VIAL SQ SCH ×2 (08:38→18:30)
[2019-02-25] MEDS: *HR* OxyCODONE/APAP 5/325 TABLET PO PRN ×4 (08:40→20:50)
[2019-02-25] MEDS ORDERED: Pantoprazole 40 MG VIAL IVP SCH (09:00)
[2019-02-25] MEDS: Furosemide 20 MG/2 ML VIAL IVP SCH ×2 (09:38→16:44)
[2019-02-25] MEDS: Insulin LISPRO 300 UNITS/3 ML VIAL SQ SCH ×3 (11:10→20:52)
[2019-02-26] MEDS: Metoclopramide 10 MG/2 ML VIAL IVP SCH ×4 (00:33→23:38)
[2019-02-26] MEDS: Ketorolac 15 MG/ML VIAL IVP SCH ×4 (00:33→23:39)
[2019-02-26] MEDS: *HR* OxyCODONE/APAP 5/325 TABLET PO PRN ×3 (01:36→20:47)
[2019-02-26 02:08] LABS: Basophils % 0.2 %; Eosinophils # 0.1 K/mcL (0.0-0.6); Eosinophils % 0.8 %; Hematocrit 27.3 % (35.3-44.9); Immature Granulocytes % 0.3 % (0-4); Lymphocytes # 1.8 K/mcL (0.6-4.6); Lymphocytes % 16.1 %; Mean Corpuscular HGB Conc 31.9 g/dL (31.6-35.5); Mean Corpuscular Hemoglobin 33.2 pg (28.0-33.3); Mean Corpuscular Volume 104.2 fL (83.0-100.0); Mean Platelet Volume 10.5 fL (9.4-12.4); Monocytes # 1.4 K/mcL (0.0-1.3); Monocytes % 12.4 %; Neutrophils # 7.8 K/mcL (1.6-8.9); Platelet Count 137 K/mcL (140-400); Red Blood Count 2.62 M/mcL (3.82-4.97); Red Cell Distribution Width 12.1 % (11.5-14.5); Segmented Neutrophils % 70.2 %
[2019-02-26 02:10] LABS: Hemoglobin 8.7 g/dL (11.5-15.4); White Blood Count 11.1 K/mcL (4.3-11.1)
[2019-02-26 02:22] LABS: BUN/Creatinine Ratio 21 (6-26); Blood Urea Nitrogen 20 mg/dL (6-20); Calcium 9.5 mg/dL (8.6-10.3); Carbon Dioxide 27 mEq/L (23-29); Chloride 104 mEq/L (98-107); Glucose 112 mg/dL (70-105); Osmolality,Calculated 293 (280-300); Potassium 3.8 mEq/L (3.5-5.1); Sodium 140 mEq/L (136-145); eGFR For African Americans > 60 (> 60); eGFR For Non-African Americans > 60 (> 60)
[2019-02-26] MEDS: *HR* Heparin 5,000 UNIT/ML VIAL SQ SCH ×2 (05:49→23:34)
[2019-02-26] MEDS: Chlorhexidine Rinse 15 ML MOUTHWASH MM SCH ×3 (20:45→23:33)
[2019-02-26] MEDS: ALPRAZolam 0.5 MG TABLET PO PRN (20:48)
[2019-02-26] MEDS: Insulin LISPRO 300 UNITS/3 ML VIAL SQ SCH ×4 (21:28→23:46)
[2019-02-26] MEDS: Aspirin Enteric Coated 81 MG Tablet PO SCH (23:32)
[2019-02-26] MEDS: Furosemide 20 MG/2 ML VIAL IVP SCH ×2 (23:32→23:38)
[2019-02-26] MEDS: Pantoprazole 40 MG VIAL IVP SCH (23:33)
[2019-02-26] MEDS: Loratadine 10 MG TABLET PO SCH (23:33)
[2019-02-26] MEDS: Nicotine 21 MG PATCH.TD24 TD SCH (23:38)
[2019-02-27] MEDS: Ketorolac 15 MG/ML VIAL IVP SCH ×4 (00:41→16:42)
[2019-02-27] MEDS: Metoclopramide 10 MG/2 ML VIAL IVP SCH ×3 (00:41→10:52)
[2019-02-27] MEDS: *HR* OxyCODONE/APAP 5/325 TABLET PO PRN ×5 (00:41→21:02)
[2019-02-27] MEDS: *HR* Heparin 5,000 UNIT/ML VIAL SQ SCH ×2 (05:24→16:41)
[2019-02-27] MEDS: Insulin LISPRO 300 UNITS/3 ML VIAL SQ SCH (07:17)
[2019-02-27] MEDS: Pantoprazole 40 MG VIAL IVP SCH (07:22)
[2019-02-27] MEDS: Chlorhexidine Rinse 15 ML MOUTHWASH MM SCH ×2 (07:22→21:03)
[2019-02-27] MEDS: Furosemide 20 MG/2 ML VIAL IVP SCH (07:22)
[2019-02-27] MEDS: Aspirin Enteric Coated 81 MG Tablet PO SCH (07:23)
[2019-02-27] MEDS: Nicotine 21 MG PATCH.TD24 TD SCH (07:23)
[2019-02-27] MEDS: Loratadine 10 MG TABLET PO SCH (07:23)
[2019-02-28] MEDS: ALPRAZolam 0.5 MG TABLET PO PRN (00:38)
[2019-02-28] MEDS: Ketorolac 15 MG/ML VIAL IVP SCH ×2 (00:38→05:40)
[2019-02-28] MEDS: *HR* OxyCODONE/APAP 5/325 TABLET PO PRN ×2 (01:21→05:40)
[2019-02-28] MEDS: *HR* Heparin 5,000 UNIT/ML VIAL SQ SCH (05:40)
[2019-02-28 07:27] VITALS: BP 116/74
[2019-02-28] MEDS: Loratadine 10 MG TABLET PO SCH (07:53)
[2019-02-28] MEDS: Nicotine 21 MG PATCH.TD24 TD SCH (07:54)
[2019-02-28] MEDS: Chlorhexidine Rinse 15 ML MOUTHWASH MM SCH (07:54)
[2019-02-28] MEDS: Aspirin Enteric Coated 81 MG Tablet PO SCH (07:54)
[2019-02-28] MEDS: Pantoprazole 40 MG VIAL IVP SCH (07:54)
== END 2019-02-28 11:04 | disposition home or self-care (01) | DRG 234 ==
LOC: INVDIALAB 07:28 → 2ANU 07:28 → ICNU 02-24 07:51 → 2NNU 02-25 16:36
PROVIDERS: ADMIT Internal Medicine Interventional Cardiology; ATTEND Thoracic Surgery (Cardiothoracic Vascular Surgery)